=== PATIENT | male | born 1965 | race Caucasian/White ===

== ENCOUNTER 2020-09-28 15:08 | Emergency (ER) | payer OTHER ==
[~2020-09-28] VITALS: Ht 185.4 cm; Wt 99.8 kg
[~2020-09-28 15:08] MED LIST: AMBIEN 5 MG TABL5 M1 PO; CELEXA20 MG PO; CELEXA40 MG PO; CYCLOBENZAPRINE5 MG PO; FLEXERIL PO; IBUPROFEN 800800 MG PO; MEDROLDOSEPACK PO; NAPROSYN500 MG PO; NOHOMEMEDICATIONS; NORCO 5-325 TA1 EACH PO; NORCO 7.5-3251 EACH PO; NORFLEX100 MG PO; PERCOCET 5-3251 EACH PO; PERCOCET 7.5-51 EACH PO; PREDNISONE 20 M20 MG PO; SENNA-DOCUSATE1 EACH PO; TRAMADOL 50 MG50 MG PO
[2020-09-28 15:37] LABS: ABSOLUTE NEUTROPHILS 4.6 thou/uL (1.4-8.2); BASOPHILS 0.9 % (0.0-2.0); EOSINOPHILS 2.9 % (0.0-3.0); HEMATOCRIT 39.4 % (42.0-52.0); HEMOGLOBIN 13.6 gm/dL (14.0-18.0); LYMPHOCYTES 28.4 % (24.0-44.0); MCH 30.2 pg (26.0-34.0); MCHC 34.6 g/dL (28.0-37.0); MCV 87.3 fL (80.0-100.0); PLATELET COUNT 158 thou/uL (150-400); POLYS 56.8 % (36.0-66.0); RBC 4.52 mil/uL (4.50-6.00); RDW 15.5 % (10.5-14.5); WBC 8.1 thou/uL (4.0-11.0)
[2020-09-28 15:43] LABS: CALCIUM 9.9 mg/dL (8.5-10.1); CREATININE 0.9 mg/dL (0.7-1.3); POTASSIUM 4.1 mmol/L (3.5-5.1)
[2020-09-28 15:53] LABS: ALBUMIN 3.5 g/dL (3.4-5.0); TOTAL BILIRUBIN 0.5 mg/dL (0.2-1.0); TOTAL PROTEIN 7.5 g/dL (6.4-8.2)
[2020-09-28 16:25] VITALS: BP 131/76
--- NOTE | 2020-09-30 07:28 | EKG ---
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 : 1965 Requested By: Slim Rasheed Order Number: [id number] MD: Porfirio Perea Measurements Intervals [place] Rate: 89 P: 53 KS: 173 QRS: -1 QRSD: 96 T: 40 QT: 334 QTc: 407 Interpretive Statements Sinus rhythm RSR' in V1 or V2, right VCD or RVH ST elev, probable normal early repol pattern No previous ECG available for comparison Electronically Signed On 09-30-2020 7:28:10 CDT by Porfirio Perea [email or web address] <ELECTRONICALLY SIGNED> By: Porfirio Perea MD, [facility] 09/30/20 0728 1515 1515 Porfirio Perea MD, FACC /EPI
== END 2020-09-28 16:25 | disposition left against medical advice (07) ==
LOC: ER 15:08
PROVIDERS: Emergency Medicine
DX: R07.89 Other chest pain (principal); R11.0 Nausea; R42 Dizziness and giddiness; F17.210 Nicotine dependence, cigarettes, uncomplicated; Z98.890 Other specified postprocedural states; Z79.891 Long term (current) use of opiate analgesic; Z79.899 Other long term (current) drug therapy; Z88.8 Allergy status to other drugs, medicaments and biological substances

== ENCOUNTER 2020-11-22 00:36 | Emergency (ER) | payer OTHER ==
[~2020-11-22] VITALS: Ht 182.9 cm; Wt 108.9 kg
--- NOTE | ~2020-11-22 | EMS ---
[address] [address] EMS Patient Care Report Name: NGHIA MONTANEZ Room #: DEP JADE [place]#: [id number] Admission: 11/22/20 Attend Phys: Discharge: 11/22/20 Date of : 69 Report #: [id number] THIS REPORT FOR: //name// Report Transmitted: 11/25/2020 09:32 EMS Care Summary [place], [place]/[facility] Incident [id number] @ 11/22/2020 00:01 Incident Location [address] [place] [address] / [place] [address] Patient NGHIA MONTANEZ Male, 55 Years 1965 Patient Address [address] [place], [place] [id number] Patient History Congestive Heart Failure (CHF),Substance Abuse,Cardiac Condition - Other, Patient Allergies No known allergies, Patient Medications Lasix, Chief Complaint chest pain Disposition Transported No Lights/[place] Dispatch Reason Heart Problems/AICD Transported To [facility] Narrative Pt states that he has been having L sided chest pain for approx 2 hours. Pt states that pain does not radiate any where. Pt states that eh has also had a cough for approx 3 weeks. Pt is coughing up yellow mucus. Pt states that he is under a lot of stress at work and at home. Pt states that last use was approx [address] [address] EMS Patient Care Report Name: NGHIA MONTANEZ Room #: [facility]#: [id number] Admission: 11/22/20 Attend Phys: Discharge: 11/22/20 Date of : 69 Report #: [id number] weeks ago. Pt flagged ambulance down while he was walking. Pt states he was trying to catch a bus. Pt transported to [facility] . no changes en route. pt care transferred to [facility] ED nursing staff. Initial Vitals @00:09P: 131,CO: 2,SpO2: 96, @00:28P: 112,CO: 5,SpO2: 82, @00:14P: 133, @00:10P: 140,R: 18,BP: 164/97,Pain: 10/10,GCS: 15,SpO2: 95,Revised Trauma: 12, @00:05P: 142,R: 18,BP: 156/117,Pain: 10/10,GCS: 15,SpO2: 96,Revised Trauma: 12, @00:28P: 119,R: 18,BP: 139/76,GCS: 15,SpO2: 93,Revised Trauma: 12, Assessments @00:02MENTAL:Time Oriented,Event Oriented,Person Oriented,Place Oriented,SKIN:HEENT:Head/Face: No Abnormalities,LUNG SOUNDS:Left Upper: No Abnormalities,Right Upper: No Abnormalities,Left Lower: No Abnormalities,Right Lower: No Abnormalities,ABDOMEN:Left Upper: No Abnormalities,Right Upper: No Abnormalities,Left Lower: No Abnormalities,Right Lower: No Abnormalities,PELVIS//GI:No Abnormalities,EXTREMITIES:Right Arm: Other,Left Arm: Other,Left Leg: No Abnormalities,Right Leg: No Abnormalities,PULSE:NEURO:No Abnormalities, Impression Chest Pain / Discomfort Procedures @00:02ALS AssessmentResponse: Unchanged@00:053-Lead ECGResponse: Unchanged@00:0912-Lead ECGResponse: Unchanged Timeline 00:01,Call Received 00:01,Dispatch Notified 00:01,Dispatched 00:01,En Route 00:01,On Scene 00:02,At Patient 00:02,ALS Assessment,Response: Unchanged 00:05,3-Lead ECG,Response: Unchanged 00:05,BP: 156/117 M,PULSE: 142,RR: 18 R,SPO2: 96 Ox,ETCO2: ,BG: ,PAIN: 10,GCS: 15, 00:09,12-Lead ECG,Response: Unchanged 00:09,BP: / M,PULSE: 131,RR: R,SPO2: 96 Ox,ETCO2: ,BG: ,PAIN: ,GCS: , 00:10,BP: 164/97 M,PULSE: 140,RR: 18 R,SPO2: 95 Ox,ETCO2: ,BG: ,PAIN: 10,GCS: 15, 00:14,BP: / M,PULSE: 133,RR: R,SPO2: Ox,ETCO2: ,BG: ,PAIN: ,GCS: , 00:16,Depart Scene [address] [address] EMS Patient Care Report Name: NGHIA MONTANEZ Room #: DEP [facility] [place]#: [id number] Admission: 11/22/20 Attend Phys: Discharge: 11/22/20 Date of : 69 Report #: [id number] 00:28,BP: / M,PULSE: 112,RR: R,SPO2: 82 Ox,ETCO2: ,BG: ,PAIN: ,GCS: , 00:28,BP: 139/76 M,PULSE: 119,RR: 18 R,SPO2: 93 Ox,ETCO2: ,BG: ,PAIN: ,GCS: 15, 00:31,At Destination 00:53,Call Closed Disclaimer v1.1 Copyright 2020 [employer] This EMS Care Summary contains data elements from the applicable legal record (which may be displayed differently). It is designed to provide pertinent information for the following purposes: continuity of care, clinical quality, and state data reporting. The complete legal record is available to ED staff and administrators of the receiving hospital in [facility]'s Patient Tracker. All data is provided "as is."
[2020-11-22 01:16] LABS: ABSOLUTE NEUTROPHILS 8.2 thou/uL (1.4-8.2); BASOPHILS 0.5 % (0.0-2.0); EOSINOPHILS 3.9 % (0.0-3.0); HEMATOCRIT 41.2 % (42.0-52.0); HEMOGLOBIN 13.9 gm/dL (14.0-18.0); LYMPHOCYTES 16.1 % (24.0-44.0); MCH 30.4 pg (26.0-34.0); MCHC 33.8 g/dL (28.0-37.0); MCV 90.1 fL (80.0-100.0); MONOCYTES 6.3 % (1.0-8.0); PLATELET COUNT 214 thou/uL (150-400); POLYS 73.2 % (36.0-66.0); RBC 4.57 mil/uL (4.50-6.00); RDW 13.6 % (10.5-14.5); WBC 11.2 thou/uL (4.0-11.0)
[2020-11-22 01:54] LABS: ANION GAP 10 mmol/L (7-16); BUN 17 mg/dL (7-18); CALCIUM 9.8 mg/dL (8.5-10.1); CHLORIDE 107 mmol/L (98-107); CO2 25 mmol/L (21-32); CREATININE 1.1 mg/dL (0.7-1.3); GLUCOSE 143 mg/dL (74-106); SODIUM 142 mmol/L (136-145)
[2020-11-22 02:04] LABS: ALBUMIN 3.7 g/dL (3.4-5.0); DIRECT BILIRUBIN < 0.1 mg/dL (<0.1-0.2); SGOT 20 U/L (15-37); SGPT 28 U/L (30-65); TOTAL BILIRUBIN 0.5 mg/dL (0.2-1.0); TOTAL PROTEIN 7.8 g/dL (6.4-8.2)
[2020-11-22 06:10] LABS: URINE BILIRUBIN NEGATIVE (Negative); URINE BLOOD 2+ (Negative); URINE CLARITY CLEAR; URINE COLOR YELLOW; URINE GLUCOSE-RANDOM* NEGATIVE (Negative); URINE KETONES NEGATIVE (Negative); URINE LEUKOCYTES-REFLEX NEGATIVE (Negative); URINE NITRITE-REFLEX NEGATIVE (Negative); URINE PROTEIN (DIPSTICK) TRACE (Negative); URINE SPECIFIC GRAVITY >= 1.030 (1.005-1.035); URINE UROBILINOGEN 0.2 E.U./dl (0.2-1.0)
[2020-11-22 06:18] LABS: BACTERIA-REFLEX 1-9 Few /HPF (None Seen); SQUAMOUS 0-3 Few /LPF (0-3); URINE WBC-REFLEX 0-5 Rare /HPF (0-5)
[2020-11-22 06:19] LABS: CRYSTALS None Seen /LPF (None Seen); HYALINE CASTS 4-10 Moderate /LPF (None Seen); MUCUS 4-6 Moderate strn/LPF (None Seen)
[2020-11-22 06:20] LABS: AMP/METHAMP Negative (Negative); BARBITURATES Negative (Negative); BENZODIAZEPINES Negative (Negative); COCAINE POSITIVE (Negative); METHADONE Negative (Negative); OPIATES POSITIVE (Negative); PCP Negative (Negative)
[2020-11-22 06:23] VITALS: BP 189/69
--- NOTE | 2020-11-22 07:12 | EKG ---
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: : 1965 Requested By: La Rod Order Number: [id number] MD: Porfirio Perea Measurements Intervals [place] Rate: 99 P: 4 LA: 159 QRS: 57 QRSD: 105 T: 31 QT: 331 QTc: 425 Interpretive Statements Sinus tachycardia Left atrial enlargement RSR' in V1 or V2, probably normal variant Baseline wander in lead(s) I,II,III,aVL,aVF,V1,V3,V5,V6 Compared to ECG 09/28/2020 15:15:14 Ventricular premature complex(es) now present Atrial abnormality now present Sinus rhythm no longer present Right ventricular hypertrophy no longer present ST (T wave) deviation no longer present Electronically Signed On 11-22-2020 7:12:25 CDT by Porfirio Perea [email or web address] <ELECTRONICALLY SIGNED> By: Porfirio Perea MD, FACC 11/22/20711 Porfirio Perea MD, FAC /EPI
== END 2020-11-22 06:37 | disposition home or self-care (01) ==
LOC: ER 00:36
PROVIDERS: Emergency Medicine
DX: R07.89 Other chest pain (principal); F15.10 Other stimulant abuse, uncomplicated; I50.9 Heart failure, unspecified; I25.2 Old myocardial infarction; F17.210 Nicotine dependence, cigarettes, uncomplicated; Z87.442 Personal history of urinary calculi; Z98.890 Other specified postprocedural states; Z79.891 Long term (current) use of opiate analgesic; Z79.899 Other long term (current) drug therapy; Z88.8 Allergy status to other drugs, medicaments and biological substances